=== PATIENT | male | born 1950 | race Caucasian/White ===

== ENCOUNTER 2023-04-24 08:39 | Outpatient (OUT) | payer MEDICARE, OTHER, SELFPAY ==
[2023-04-24 09:19] LABS: Basophils Percent Auto 0.4 % (0.2-2.0); Eosinophils Absolute Auto 0.1 10^3/uL (0.0-0.7); Eosinophils Percent Auto 1.8 % (0.9-7.0); Hematocrit 46.7 % (42.0-54.0); Hemoglobin 15.7 g/dL (14.0-18.0); Immature Granulocytes Abs Auto 0.02 10^3/uL (0.00-0.03); Immature Granulocytes Pct Auto 0.4 % (0.0-0.5); Lymphocytes Absolute Auto 1.6 10^3/uL (1.2-3.8); Lymphocytes Percent Auto 32.1 % (20.5-60.0); Mean Corpuscular HGB Conc 33.6 g/dL (29.9-35.2); Mean Corpuscular Hemoglobin 31.7 pg (25.9-34.0); Mean Corpuscular Volume 94.2 fL (80.0-94.0); Mean Platelet Volume 8.7 fL (9.5-13.5); Monocytes Absolute Auto 0.5 10^3/uL (0.3-0.8); Monocytes Percent Auto 10.1 % (1.7-12.0); Neutrophils Absolute Auto 2.7 10^3/uL (1.4-6.5); Neutrophils Percent Auto 55.2 % (43.0-75.0); Platelet Count 248 10^3/uL (150-450); Red Blood Count 4.96 10^6/uL (4.70-6.10); Red Cell Distribution Width 13.6 % (11.0-15.0)
[2023-04-24 09:42] LABS: Alanine Aminotransferase 31 U/L (16-63); Albumin Level 4.2 g/dL (3.4-5.0); Alkaline Phosphatase 187 U/L (46-116); Anion Gap 13.9; Aspartate Amino Transferase 20 U/L (15-37); BUN Creatinine Ratio 14.4; Bilirubin Total 0.4 mg/dL (0.2-1.0); Calcium 9.5 mg/dL (8.5-10.1); Carbon Dioxide 27.2 mmol/L (21.0-32.0); Chloride 102 mmol/L (98-107); Chol HDL Ratio 2.5; Cholesterol 155 mg/dL (<=200); Estimated GFR (African America >60 (>=60); Estimated GFR (Non-African Ame >60 (>=60); Glucose 105 mg/dL (74-106); HDL Cholesterol 61 mg/dL (40-60); Potassium 4.1 mmol/L (3.5-5.1); Sodium 139 mmol/L (136-145); Total Protein 8.2 g/dL (6.4-8.2); Triglycerides 126 mg/dL (<=150); VLDL CHOLESTEROL 25.2 mg/dL
[2023-04-24 09:43] LABS: Estimated Average Glucose 114 mg/dL; Glycohemoglobin A1C 5.6 % (4.5-6.2)
[2023-04-24 12:41] LABS: Microalbumin Urine Random 1.5 mg/dL (<=30.0)
[2023-04-24 13:21] LABS: Prostate Specific Antigen Dx 1.03 ng/mL (<=4.00)
== END 2023-04-24 08:40 | disposition home or self-care (01) ==
LOC: LAB 08:44
PROVIDERS: PCP Family Medicine; Visit Provider Family Medicine
DX: E11.9 Type 2 diabetes mellitus without complications (principal); G40.909 Epilepsy, unspecified, not intractable, without status epilepticus; N40.0 Benign prostatic hyperplasia without lower urinary tract symptoms
CPT/HCPCS: 36415; 80053; 80061; 82043; 83036; 84153; 85025

== ENCOUNTER 2024-05-06 08:19 | Outpatient (OUT) | payer MEDICARE, OTHER, SELFPAY ==
[2024-05-06 08:46] LABS: Basophils Percent Auto 0.8 % (0.2-2.0); Eosinophils Absolute Auto 0.1 10^3/uL (0.0-0.7); Hematocrit 42.3 % (42.0-54.0); Hemoglobin 14.2 g/dL (14.0-18.0); Immature Granulocytes Abs Auto 0.01 10^3/uL (0.00-0.03); Immature Granulocytes Pct Auto 0.3 % (0.0-0.5); Lymphocytes Absolute Auto 1.7 10^3/uL (1.2-3.8); Lymphocytes Percent Auto 41.9 % (20.5-60.0); Mean Corpuscular HGB Conc 33.6 g/dL (29.9-35.2); Mean Corpuscular Hemoglobin 32.2 pg (25.9-34.0); Mean Corpuscular Volume 95.9 fL (80.0-94.0); Mean Platelet Volume 8.4 fL (9.5-13.5); Monocytes Absolute Auto 0.4 10^3/uL (0.3-0.8); Monocytes Percent Auto 10.9 % (1.7-12.0); Neutrophils Absolute Auto 1.7 10^3/uL (1.4-6.5); Neutrophils Percent Auto 43.1 % (43.0-75.0); Platelet Count 240 10^3/uL (150-450); Red Blood Count 4.41 10^6/uL (4.70-6.10); Red Cell Distribution Width 13.4 % (11.0-15.0); White Blood Count 3.9 10^3/uL (4.0-11.0)
[2024-05-06 09:12] LABS: Microalbum Creatinine Ratio Ur 20.3 mg/g (0.0-29.9); Microalbumin Urine Random 1.9 mg/dL (<=30.0)
[2024-05-06 12:49] LABS: Anion Gap 14.5; Aspartate Amino Transferase 17 U/L (15-37); BUN Creatinine Ratio 15.7; Bilirubin Total 0.4 mg/dL (0.2-1.0); Calcium 9.3 mg/dL (8.5-10.1); Carbon Dioxide 24.8 mmol/L (21.0-32.0); Chloride 102 mmol/L (98-107); Estimated GFR (African America >60 (>=60); Estimated GFR (Non-African Ame >60 (>=60); Glucose 95 mg/dL (74-106); Potassium 3.3 mmol/L (3.5-5.1); Sodium 138 mmol/L (136-145)
[2024-05-06 12:50] LABS: Alanine Aminotransferase 24 U/L (16-63); Albumin Globulin Ratio 1.1; Albumin Level 3.9 g/dL (3.4-5.0); Alkaline Phosphatase 201 U/L (46-116); Chol HDL Ratio 2.4; Cholesterol 163 mg/dL (<=200); Globulin 3.4 g/dL; HDL Cholesterol 69 mg/dL (40-60); TSH W/ REFLEX FT4 4.166 uIU/mL (0.358-3.740); Total Protein 7.3 g/dL (6.4-8.2); Triglycerides 108 mg/dL (<=150); VLDL CHOLESTEROL 21.6 mg/dL
[2024-05-06 12:55] LABS: Prostate Specific Antigen Scrn 1.14 ng/mL (<=4.00)
[2024-05-06 13:14] LABS: Free T4 0.76 ng/dL (0.76-1.46)
[2024-05-07 06:10] LABS: HCV Antibody Non Reactive (Non Reactive)
== END 2024-05-06 08:20 | disposition home or self-care (01) ==
LOC: LAB 08:20
PROVIDERS: PCP Internal Medicine; Visit Provider Internal Medicine
DX: Z12.5 Encounter for screening for malignant neoplasm of prostate (principal); E11.69 Type 2 diabetes mellitus with other specified complication
CPT/HCPCS: 36415; 80053; 80061; 82043; 82570; 84439; 84443; 85025; 86803; G0103

== ENCOUNTER 2024-06-25 13:39 | Outpatient (OUT) | payer MEDICARE, OTHER, SELFPAY ==
[2024-06-25 14:39] LABS: Phenytoin Dilantin 9.8 ug/mL (10.0-20.0)
== END 2024-06-25 13:40 | disposition home or self-care (01) ==
LOC: LAB 13:40
PROVIDERS: PCP Internal Medicine; Visit Provider Nurse Practitioner Family
DX: R56.9 Unspecified convulsions (principal)
CPT/HCPCS: 36415; 80185

== ENCOUNTER 2025-04-26 09:53 | Outpatient (OUT) | payer MEDICARE, OTHER, SELFPAY ==
--- NOTE | 2025-04-26 10:01 | US_ITS ---
[place] [id number] Patient Name: SARAY STANLEY MRN: [id number] date: 1950 Sex: M Assigned Patient Location: [place] Current Patient Location: US Accession/Order Number: [id number] Exam Date: 04/26/2025 10:46 Report Date: 04/26/2025 10:47 At the request of: LUIS PRIDE Procedure: US aorta Aortic ultrasound Reason for exam: History of smoking. Comparison: none Technique: Grayscale, spectral and color Doppler images of the abdominal aorta were obtained. Findings: Visualized portions of the abdominal aorta appears normal in caliber without evidence of aneurysm. Visualized portions of the common iliac arteries also appear normal in caliber. US/US aorta Impression: No ultrasound evidence of abdominal aortic aneurysm. Impression dictated by: Saleem Quevedo Jr., D.O. 04/26/2025 10:47 AM Dictation Location: [place] [id number] Electronically authenticated by: [id number] Date: 04/26/2025 10:47
--- OUTSIDE RECORDS SUMMARY | 2025-04-26 10:17 | XMS_ITS | CCD ---
Author Organization [facility] Care Team Providers Care Tassel Clipper Name Role Phone HOUSE, DR WALKER Primary Care Unavailable ABEBA LU Admitting Unavailable ABEBA LU Attending Unavailable TENNILLE SANDHU Consulting Unavailable HOUSE, DR WALKER Admitting Unavailable HOUSE, DR WALKER Attending Unavailable HOUSE, DR WALKER Primary Care Unavailable HOUSE, DR WALKER Consulting Unavailable GÉNESIS, DR DOUGLAS Admitting Unavailable GÉNESIS, DR DOUGLAS Attending Unavailable BOBY, DR WALKER Primary Care Unavailable GÉNESIS, DR DOUGLAS Consulting Unavailable DRAGAN Jack Primary Care Provider DO Stella Capps Attending Provider [phone] Stella Capps Attending Unavailable Christopher Jack Primary Care Unavailable Stella Capps Admjonatan Unavailable Christopher Jack Primary Care Unavailable Stella Capps Admitting Unavailable Stella Capps Attending Unavailable Christopher Jack Primary Care Unavailable Stella Capps Admitting Unavailable Stella Capps Attending Unavailable Christopher Jack MD Primary Care Provider Stella Capps DO Unavailable CHRISTOPHER JACK Attending Unavailable CHRISTOPHER JACK Attending Unavailable JACY MUNOZ Attending Unavailable CHRISTOPHER JACK Attending Unavailable JACY MUNOZ Attending Unavailable Medications Current Medications Medication Drug Class(es) Dates Sig (Normalized) Sig (Original) atorvastatin 10 mg oral tablet (13 sources) HMG-CoA Reductase Inhibitor Start: 12-03-2024 take 1 tablet by mouth once daily atorvastatin (Lipitor) 10 MG tablet Indications: Pure hypercholesterolemia Take 1 tablet (10 mg) by mouth Daily 100 tablet 3 12/03/2024 Active Start: 12-18-2023 take 1 tablet by lester th once daily atorvastatin (Lipitor) 10 MG tablet Indications: Pure hypercholesterolemia (CMS/HCC) take 1 tablet by mouth once daily 100 tablet 3 12/18/2023 Active doxepin hydrochloride 10 mg oral capsule (13 sources) Tricyclic Antidepressant Start: 12-30-2024 take 1 capsule by mouth at bedtime doxepin (SINEquan) 10 MG capsule Indications: Obstructive sleep apnea TAKE 1 TO 2 CAPSULES BY MOUTH AT BEDTIME 60 capsule 1 12/30/2024 Active Start: 10-05-2024 take 1 capsule by mo uth at bedtime doxepin (SINEquan) 10 MG capsule Indications: Obstructive sleep apnea TAKE 1 TO 2 CAPSULE BY MOUTH AT BEDTIME 60 capsule 1 10/05/2024 Active Start: 03-26-2023 take 1 capsule by mo uth at bedtime doxepin (SINEquan) 10 MG capsule Take 10 mg by mouth at bedtime 03/26/2023 Active metFORMIN hydrochloride 500 mg oral tablet (13 sources) Biguanide Start: 10-05-2024 End: 10-05-2025 take 1 tablet by mouth in the morning metFORMIN (Glucophage) 500 MG tablet Indications: Type 2 diabetes mellitus without complication, without long-term current use of insulin (HCC) Take 1 tablet (500 mg) by mouth in the morning and 1 tablet (500 mg) in the evening. Take with meals. 180 tablet 3 10/05/2024 10/05/2025 Active Start: 09-23-2023 End: 09-22-2024 take 1 tablet by mouth in the morning metFORMIN (Glucophage) 500 MG tablet Indications: Type 2 diabetes mellitus without complication, without long-term current use of insulin (CMS/HCC) Take 1 tablet (500 mg) by mouth in the morning and 1 tablet (500 mg) in the evening. Take with meals. 180 tablet 3 09/23/2023 09/22/2024 Active phenytoin 50 mg chewable tablet (13 sources) Anti-epileptic Agent Start: 12-30-2024 take 3 tablets by mouth twice daily Phenytoin Infatabs 50 MG chewable tablet Indications: Seizures (HCC) CHEW AND SWALLOW 3 TABLETS BY MOUTH TWICE A DAY 540 tablet 12/30/2024 Active Start: 10-13-2024 take 3 tablets by mo uth twice daily Phenytoin Infatabs 50 MG chewable tablet Indications: Seizures (CMS/HCC) CHEW AND SWALLOW 3 TABLETS BY MOUTH TWICE A DAY 540 tablet 10/13/2024 Active Start: 03-23-2024 take 3 tablets by mo uth twice daily phenytoin (Dilantin) 50 MG chewable tablet Indications: Seizures (CMS/HCC) take 3 tablets by mouth twice a day 540 tablet 1 03/23/2024 Active Problems Active Problems Problem Classification Problem Date Documented Da te Episodic/Chronic Administrative/social admission (2 sources) Patient encounter status; Translations: [Other specified counseling] 04-19-2025 Episodic Allergic reactions (13 sources) Atopic dermatitis; Translations: [Other atopic dermatitis] Onset: 09-20-2023 09-20-2023 Chronic Diabetes mellitus with complications (17 sources) Type 2 diabetes mellitus; Translations: [Type 2 diabetes mellitus with other specified complication] Onset: 09-23-2023 05-04-2024 Chronic Diabetes mellitus without complication (4 sources) Type 2 diabetes mellitus without complications; Translations: [TYPE 2 DM WITHOUT COMPLICATIONS] Onset: 10-02-2021 Chronic Epilepsy; convulsions (14 sources) Epilepsy, unspecified, not intractable, without status epilepticus; Translations: [Epilepsy] Onset: 01-06-2018 05-17-2024 Chronic Epilepsy; convulsions (20 sources) Unspecified convulsions; Translations: [Seizure] Onset: 05-24-2022 Episodic Hyperplasia of prostate (1 source) Benign prostatic hyperplasia without lower urinary tract symptoms; Translations: [BENIGN PROSTATIC HYPRPLASIA WO LUTS] Onset: 10-08-2021 Chronic Other aftercare (1 source) Other exterminator termite (current) drug therapy; Translations: [[employer] CURRENT DRUG THERAPY] Onset: 09-03-2022 Episodic Other aftercare (1 source) 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; Translations: [M[facility] USE ORAL HYPOGLYCEMIC DX] Onset: 09-03-2022 Episodic Other hereditary and degenerative nervous system conditions (15 sources) Impaired cognition; Translations: [Mild cognitive impairment, so stated] Onset: 10-01-2018 05-17-2024 Chronic Other screening for suspected conditions (not mental disorders or infectious disease) (5 sources) Encounter for screening for malignant neoplasm of prostate; Translations: [Patient encounter status] Onset: 10-08-2021 04-19-2025 Episodic Residual codes; unclassified (20 sources) Obstructive sleep apnea syndrome; Translations: [Obstructive sleep apnea (adult) (pediatric)] Onset: 01-06-2018 05-25-2024 Chronic Screening and history of mental health and substance abuse codes (2 sources) Tobacco smoking behavior - finding; Translations: [Personal history of nicotine dependence] 04-19-2025 Episodic Unclassified (1 source) Unspecified convulsions; Translations: [Unspecified convulsions] Onset: 07-04-2023 Viral infection (4 sources) COVID-19; Translations: [COVID-19] Onset: 08-29-2022 Past or Other Problems Problem Classification Problem Date Documented Da te Episodic/Chronic Disorders of lipid metabolism (13 sources) Pure hypercholesterolemi a; Translations: [Pure hypercholesterolemi a, unspecified] Onset: 09-23-2023 Resolved: 10-14-2024 09-23-2023 Chronic Other liver diseases (19 sources) Alkaline phosphatase raised; Translations: [Abnormal levels of other serum enzymes] Onset: 10-01-2018 05-25-2024 Episodic Residual codes; unclassified (17 sources) Insomnia; Translations: [Insomnia, unspecified] Onset: 10-25-2017 05-25-2024 Episodic Residual codes; unclassified (17 sources) Amnesia; Translations: [Other amnesia] Onset: 10-25-2017 05-25-2024 Episodic Results Test Name Value Interpretation Reference Range Facility Laboratory - Hematology and Cell countson 04-19-2025 HbA1c (Bld) [Mass fraction] 5.7 % [facility] No Panel Informationon 04-19 [facility] HbA1c (Bld) [Mass fraction]o n 10-01-2024 [facility] Laboratory - Chemistry and C hemistry - challengeon 10-01-2024 Prostate specific Ag [Mass/Vol] 0.84 ng/mL [facility] ALT [Catalytic activity/Vol] 24 U/L [facility] AST [Catalytic activity/Vol] 23 U/L [facility] Creatinine (U) [Mass/Vol] 0.8 mg/dL [facility] GFR/1.73 sq M.predicted among non-blacks MDRD (S/P/Bld) [Vol rate/Area] 93 mL/min/{1.73_m2} [facility] Glucose [Mass/Vol] 121 mg/dL [facility] Potassium [Moles/Vol] 3.6 mmol/L [facility] Sodium [Moles/Vol] 141 mmol/L [facility] Urea nitrogen [Mass/Vol] 16 mg/dL [facility] Laboratory - Hematology and Cell countson 10-01-2024 HbA1c (Bld) [Mass fraction] 5.6 % [facility] Lipid 1996 panelon 4 Cholesterol [Mass/Vol] 158 mg/dL [facility] HDL-C 60 [facility] LDL-C 75 [facility] Triglyceride [Mass/Vol] 115 mg/dL [facility] Microalbumin/Creatinine rati o panel (U)on 10-01-2024 Albumin DL <= 20 mg/L (U) [Mass/Vol] 2 mg/dL [facility] Albumin/Creatinine DL <= 1.0 mg/L (U) [Ratio] 14 [facility] Creatinine (U) [Mass/Vol] 139 mg/dL [facility] No Panel Informationon 10-01 [facility] Prostate specific Ag [Mass/V ol]on 10-01-2024 [facility] ALL PHENYTOIN (DILANTIN)on 0 06-25-2024 Interpretation and review of laboratory results Abnormal [facility] PHENYTOIN DILANTIN 9.8 ug/mL Low 10.0 - 20 .0 ug/mL [facility] MISC LABon 07-25-2023 MISC LAB Normal [facility] Comment on above: Order Comment: [facility] Test Name: PHENYTOIN, FREE AND TOTAL LC#[id number], CPT#20042, 50240 Result Comment: See report. Scanned copy available in EMR. PERFORMED BY: [place] [address] PATHOLOGIST MAINTENANCE MAN RICCO BRANCH M.D. Performed By: #### [facility] #### [address] Phenytoin (Dilantin)on 07-04 Phenytoin [Mass/Vol] 7.7 ug/mL Low 10.0-20.0 [facility] Comment on above: Order Comment: LAST TIME HE HAD HIS MEDICATION WAS ON 06/25/2023 Result Comment: Last dose: - PERFORMED BY: [place] [address] PATHOLOGIST MAINTENANCE MAN RICCO BRANCH M.D. Performed By: #### P NICCI #### [facility] [address] Phenytoin [Mass/volume] in S vijay or PlasmaOrdered By: Stella Capps on 07-04-2023 Phenytoin [Mass/Vol] 7.7 ug/mL 10.0-20.0 [facility] Comment on above: Last dose: - Alanine aminotransferase [En zymatic activity/volume] in Serum or PlasmaOrdered By: Stella Capps on 06-18-2023 ALT [Catalytic activity/Vol] 20 U/L 7-52 [facility] Albumin [Mass/volume] in Ser um or Plasma by Bromocresol green (BCG) dye binding methoOrdered By: Stella Capps on 06-18-2023 Albumin BCG dye [Mass/Vol] 4.3 g/dL 3.5-5.7 [facility] Alkaline phosphatase [Enzyma tic activity/volume] in Serum or PlasmaOrdered By: Stella Capps on 06-18-2023 ALP [Catalytic activity/Vol] 153 U/L 34-104 [facility] Aspartate aminotransferase [ Enzymatic activity/volume] in Serum or PlasmaOrdered By: Stella Capps on 06-18-2023 AST [Catalytic activity/Vol] 19 U/L 13-39 [facility] Bilirubin.direct [Mass/volum e] in Serum or PlasmaOrdered By: Stella Capps on 06-18-2023 Bilirubin.direct [Mass/Vol] 0.10 mg/dL 0.03-0.18 [facility] Bilirubin.total [Mass/volume ] in Serum or PlasmaOrdered By: Stella Capps on 06-18-2023 Bilirubin [Mass/Vol] 0.4 mg/dL 0.3-1.0 [facility] Globulin Calc (S) [Mass/Vol] Ordered By: Stella Capps on 06-18-2023 Globulin (S) [Mass/Vol] 2.6 g/dL [facility] Hepatic Panelon 06-18-2023 Albumin [Mass/Vol] 4.3 g/dL Normal 3.5-5.7 [facility] Comment on above: Performed By: #### P HENDanyelle, HEPATIC #### [address] Albumin/Globulin [Mass ratio] 1.7 {ratio} Normal [facility] Comment on above: Performed By: #### P HENY, HEPATIC #### [address] ALP [Catalytic activity/Vol] 153 U/L High 34-104 [facility] Comment on above: Result Comment: PERF ORMED BY: [place] [address] PATHOLOGIST MAINTENANCE MAN RICCO BRANCH M.D. Performed By: #### P HENDanyelle, HEPATIC #### [address] ALT [Catalytic activity/Vol] 20 U/L Normal 7-52 [facility] Comment on above: Performed By: #### P HENDanyelle, HEPATIC #### [address] AST [Catalytic activity/Vol] 19 U/L Normal 13-39 [facility] Comment on above: Performed By: #### P HENDanyelle, HEPATIC #### [address] Bilirubin [Mass/Vol] 0.4 mg/dL Normal 0.3-1.0 [facility] Comment on above: Performed By: #### P HENDanyelle, HEPATIC #### [facility] [address] [place] [address] Bilirubin,Indirect 0.3 mg/dL Normal [facility] Comment on above: Performed By: #### P HENY, HEPATIC #### [address] Bilirubin.indirect [Mass/Vol] 0.10 mg/dL Normal 0.03-0.18 [facility] Comment on above: Performed By: #### P HENY, HEPATIC #### [address] Globulin (S) [Mass/Vol] 2.6 g/dL Normal [facility] Comment on above: Performed By: #### P HENY, HEPATIC #### [facility] [address] Protein [Mass/Vol] 6.9 g/dL Normal 6.4-8.9 [facility] Comment on above: Performed By: #### P NICCI, HEPATIC #### [facility] [address] Phenytoin (Dilantin)on 06-18 Phenytoin [Mass/Vol] 3.6 ug/mL Low 10.0-20.0 [facility] Comment on above: Order Comment: Date of last dose?: [id number] Time of last dose?: 899 Result Comment: Last dose: - PERFORMED BY: [place] [address] PATHOLOGIST MAINTENANCE MAN RICCO BRANCH M.D. Performed By: #### P NICCI, HEPATIC #### [facility] [address] [place] [address] Phenytoin [Mass/volume] in S vijay or PlasmaOrdered By: Stella Capps on 06-18-2023 Phenytoin [Mass/Vol] 3.6 ug/mL 10.0-20.0 [facility] Comment on above: Last dose: - Protein [Mass/volume] in Ser um or PlasmaOrdered By: Stella Capps on 06-18-2023 Protein [Mass/Vol] 6.9 g/dL 6.4-8.9 [facility] Serum or plasma albumin/glob ulin mass ratioOrdered By: Stella Capps on 06-18-2023 Albumin/Globulin [Mass ratio] 1.7 {ratio} [facility] Serum or plasma non-glucuron idated bilirubin measurement (mass/volume)Ordered By: Stella Capps on 06-18-2023 Bilirubin.indirect [Mass/Vol] 0.3 mg/dL [facility] Covid-19 PCR (CVDTBH)on 08-08 SARS-CoV-2 (COVID-19) RNA VARSHA+probe Ql (Unsp spec) Detected Critically abnormal NOT DETECTED [facility] Comment on above: Result Comment: This test is not yet approved or cleared by the [place] FDA. When there are no FDA-approved or cleared tests available, and other criteria are met, FDA can make tests available under an emergency access mechanism called an Emergency Use Authorization (EUA). The EUA for this test is supported by the [place] of Health and Human Service's declaration that circumstances exist to justify the emergency use of in vitro diagnostics for the detection and/or diagnosis of the virus that causes COVID-19. This EUA will remain in effect for the duration of the COVID-19 declaration justifying emergency of IVDs, unless it is terminated or revoked by the FDA (after which the test may no longer be used). Performed By: #### C VDTB #### [facility] [address] [place] [address] Dr. Gloria Costa DILANTINon 05-24-2022 Phenytoin [Mass/Vol] 3.7 ug/mL Critically low 10.0-20.0 [facility] Comment on above: Performed By: #### Delmer DOYLE PHY #### [facility] [address] [place] [address] Dr. Gloria Costa LIVER PROFILEon 05-24-2022 Albumin [Mass/Vol] 4.2 g/dL Normal 3.4-5.0 [facility] Comment on above: Performed By: #### Delmer DOYLE PHY #### [facility] [address] [place] [address] Dr. Gloria Costa Albumin/Globulin [Mass ratio] 1.1 {ratio} Normal [facility] Comment on above: Performed By: #### Delmer DOYLE PHY #### [facility] [address] [place] [address] Dr. Gloria Costa ALP [Catalytic activity/Vol] 222 U/L Critically high 46-116 [facility] Comment on above: Performed By: #### Delmer DOYLE PHY #### [facility] [address] [place] [address] Dr. Gloria Costa ALT [Catalytic activity/Vol] 27 U/L Normal 16-63 [facility] Comment on above: Performed By: #### Delmer DOYLE PHY #### [facility] [address] [place] [address] Dr. Golria Costa AST [Catalytic activity/Vol] 18 U/L Normal 15-37 [facility] Comment on above: Performed By: #### L VIVEK, PHY #### [facility] [address] [place] [address] Dr. Gloria Costa BILI, CONJUGATED 0.1 mg/dL Normal 0.0-0.2 [facility] Comment on above: Performed By: #### L VIVEK, PHY #### [facility] [address] [place] [address] Dr. Gloria Costa Bilirubin [Mass/Vol] 0.3 mg/dL Normal 0.2-1.0 [facility] Comment on above: Performed By: #### L VIVEK, PHY #### [facility] [address] [place] [address] Dr. Gloria Costa Globulin (S) [Mass/Vol] 3.7 g/dL Normal [facility] Comment on above: Performed By: #### L VIVEK, PHY #### [facility] [address] [place] [address] Dr. Gloria Costa Protein [Mass/Vol] 7.9 g/dL Normal 6.4-8.2 [facility] Comment on above: Performed By: #### L VIVEK, PHY #### [facility] [address] [place] [address] Dr. Gloria Costa PSA SCREENING LABCORPon 09-07 Prostate specific Ag [Mass/Vol] 0.8 ng/mL Normal 0.0-4.0 [facility] Comment on above: Result Comment: Roch theo ECLIA methodology. . According to the [place] [employer], Serum PSA should decrease and remain at undetectable levels after radical prostatectomy. The AUA defines biochemical recurrence as an initial PSA value 0.2 ng/mL or greater followed by a subsequent confirmatory PSA value 0.2 ng/mL or greater. Values obtained with different assay methods or kits cannot be used interchangeably. Results cannot be interpreted as absolute evidence of the presence or absence of malignant disease. Performed By: #### P SASCLC #### [facility] [address] [address] [address] Gloria Costa CBC AUTO DIFFon 10-02-2021 BASO # 0.0 103/ul Normal 0.0-0.1 [facility] Comment on above: Performed By: #### C BC #### [facility] [address] [place] [address] Dr. Gloria Costa Basophils/100 WBC (Bld) 0.7 % Normal 0.2-2.0 [facility] Comment on above: Performed By: #### C BC #### [facility] [address] [place] [address] Dr. Gloria Costa EO # 0.1 103/ul Normal 0.0-0.7 [facility] Comment on above: Performed By: #### C BC #### [facility] [address] [place] [address] Dr. Gloria Costa Eosinophils/100 WBC (Bld) 2.0 % Normal 0.9-7.0 [facility] Comment on above: Performed By: #### C BC #### [facility] [address] [place] [address] Dr. Gloria Costa Erythrocyte distribution width (RBC) [Ratio] 14.0 % Normal 11.0-15.0 [facility] Comment on above: Performed By: #### C BC #### [facility] [address] [place] [address] Dr. Gloria Costa Hematocrit (Bld) [Volume fraction] 48.3 % Normal 42.0-54.0 [facility] Comment on above: Performed By: #### C BC #### [facility] [address] [place] [address] Dr. Gloria Costa Hemoglobin (Bld) [Mass/Vol] 15.1 g/dL Normal 14.0-18.0 [facility] Comment on above: Performed By: #### C BC #### [facility] [address] [place] [address] Dr. Gloria Costa IG # 0.01 10e3/ul Normal 0.00-0.03 [facility] Comment on above: Performed By: #### C BC #### [facility] [address] [place] [address] Dr. Gloria Costa IG % 0.2 % Normal 0.0-0.5 [facility] Comment on above: Performed By: #### C BC #### [facility] [address] [place] [address] Dr. Gloria Costa LYMPH # 1.9 103/ul Normal 1.2-3.8 [facility] Comment on above: Performed By: #### C BC #### [facility] [address] [place] [address] Dr. Gloria Costa Lymphocytes/100 WBC (Bld) 31.8 % Normal 20.5-60.0 [facility] Comment on above: Performed By: #### C BC #### [facility] [address] [place] [address] Dr. Gloria Costa MANUAL DIFF REQ NO Normal [facility] Comment on above: Performed By: #### C BC #### [facility] [address] [place] [address] Dr. Gloria Costa MCH (RBC) [Entitic mass] 30.7 pg Normal 25.9-34.0 [facility] Comment on above: Performed By: #### C BC #### [facility] [address] [place] [address] Dr. Gloria Costa MCHC (RBC) [Mass/Vol] 31.3 g/dL Normal 29.9-35.2 [facility] Comment on above: Performed By: #### C BC #### [facility] [address] [place] [address] Dr. Gloria Costa MCV (RBC) [Entitic vol] 98.2 fL Critically high 80.0-94.0 [facility] Comment on above: Performed By: #### C BC #### [facility] [address] [place] [address] Dr. Gloria Costa MONO # 0.6 103/ul Normal 0.3-0.8 [facility] Comment on above: Performed By: #### C BC #### [facility] [address] [place] [address] Dr. Gloria Costa Monocytes/100 WBC (Bld) 9.2 % Normal 1.7-12.0 [facility] Comment on above: Performed By: #### C BC #### [facility] [address] [place] [address] Dr. Gloria Costa NEUT # 3.4 103/ul Normal 1.4-6.5 [facility] Comment on above: Performed By: #### C BC #### [facility] [address] [place] [address] Dr. Gloria Costa Neutrophils/100 WBC (Bld) 56.1 % Normal 43.0-75.0 [facility] Comment on above: Performed By: #### C BC #### [facility] [address] [place] [address] Dr. Gloria Costa Platelet mean volume (Bld) [Entitic vol] 9.0 fL Critically low 9.5-13.5 [facility] Comment on above: Performed By: #### C BC #### [facility] [address] [place] [address] Dr. Gloria Costa PLT 272 103/ul Normal 150-450 [facility] Comment on above: Performed By: #### C BC #### [facility] [address] [place] [address] Dr. Gloria Costa RBC 4.92 106/ul Normal 4.70-6.10 [facility] Comment on above: Performed By: #### C BC #### [facility] [address] [place] [address] Dr. Gloria Costa WBC 6.0 103/ul Normal 4.0-11.0 [facility] Comment on above: Performed By: #### C BC #### [facility] [address] [place] [address] Dr. Gloria CLAYANTIErica 10-02-2021 Phenytoin [Mass/Vol] 3.1 ug/mL Critically low 10.0-20.0 [facility] Comment on above: Performed By: #### P HY, LIPID, CMP #### [facility] [address] [address] [address] Gloria Costa GLYCOHEMOGLOBIN A1Con 2020 ADA RECOMMENDATION ADA THERAPEUTIC TARGET 6.0 - 7.0 ACTION SUGGESTED > 7.0 Normal [facility] Comment on above: Performed By: #### A 1C #### [facility] [address] [address] [address] Gloria Costa Glucose [Mass/Vol] 123 mg/dL Normal [facility] Comment on above: Performed By: #### A 1C #### [facility] [address] [address] [address] Gloria Costa HbA1c (Bld) [Mass fraction] 5.9 % Normal <=6.0 [facility] Comment on above: Performed By: #### A 1C #### [facility] [address] [place] [address] Dr. Gloria Costa LIPID PROFILEon 10-02-2021 CHOL-HDL RATIO NORM SEE BELOW Normal [facility] Comment on above: Result Comment: 3.3 - 4.4 LOW RISK 4.4 - 7.1 AVERAGE RISK 7.1 - 11.0 MODERATE RISK >11.0 HIGH RISK Performed By: #### P HY, LIPID, CMP #### [facility] [address] [place] [address] Dr. Gloria Costa Cholesterol [Mass/Vol] 187 mg/dL Normal <=200 [facility] Comment on above: Performed By: #### P HY, LIPID, CMP #### [facility] [address] [place] [address] Dr. Gloria Costa Cholesterol in HDL [Mass/Vol] 60 mg/dL Normal [facility] Comment on above: Performed By: #### P HY, LIPID, CMP #### [facility] [address] [address] [address] Gloria Costa Cholesterol in LDL [Mass/Vol] 97.4 mg/dL Normal [facility] Comment on above: Performed By: #### P HY, LIPID, CMP #### [facility] [address] [address] [address] Gloria Costa Cholesterol.total/Cho lesterol in HDL [Mass ratio] 3.1 {ratio} Normal [facility] Comment on above: Performed By: #### P HY, LIPID, CMP #### [facility] [address] [address] [address] Gloria Costa HDL NORMAL > or = 60 mg/dl - LOW CARDIOVASCULAR RISK <40 mg/dl - HIGH CARDIOVASCULAR RISK Normal [facility] Comment on above: Performed By: #### P HY, LIPID, CMP #### [facility] [address] [address] [address] Gloria Costa LDL CALC NORMAL SEE BELOW Normal [facility] Comment on above: Result Comment: <100 mg/dl OPTIMAL 100 - 129 mg/dl NEAR OR ABOVE OPTIMAL 130 - 159 mg/dl BORDERLINE HIGH 160 - 189 mg/dl HIGH >190 mg/dl VERY HIGH Performed By: #### P HY, LIPID, CMP #### [facility] [address] [address] [address] Gloria Costa Triglyceride [Mass/Vol] 148 mg/dL Normal <=150 [facility] Comment on above: Performed By: #### P HY, LIPID, CMP #### [facility] [address] [address] [address] Gloria Costa VLDL CALC 29.6 mg/dL Normal [facility] Comment on above: Performed By: #### P HY, LIPID, CMP #### [facility] [address] [address] [address] Gloria Costa MICROALBUMIN, RAND URon 09-07 mALB 5.1 mg/L Normal <=30.0 [facility] Comment on above: Performed By: #### M ALBR #### [facility] [address] [address] [address] Gloria Costa PROF 14(COMP METB)on 021 Albumin [Mass/Vol] 4.1 g/dL Normal 3.5-5.0 [facility] Comment on above: Performed By: #### P HY, LIPID, CMP #### [facility] [address] [address] [address] Gloria Costa Albumin/Globulin [Mass ratio] 1.2 {ratio} Normal [facility] Comment on above: Performed By: #### P HY, LIPID, CMP #### [facility] [address] [address] [address] Gloria Costa ALP [Catalytic activity/Vol] 185 U/L Critically high 38-126 [facility] Comment on above: Performed By: #### P HY, LIPID, CMP #### [facility] [address] [address] [address] Gloria Costa ALT [Catalytic activity/Vol] 38 U/L Normal 21-72 [facility] Comment on above: Performed By: #### P HY, LIPID, CMP #### [facility] [address] [place] [address] Dr. Gloria Costa Anion gap [Moles/Vol] 13.0 mmol/L Normal [facility] Comment on above: Performed By: #### P HY, LIPID, CMP #### [facility] [address] [place] [address] Dr. Gloria Costa AST [Catalytic activity/Vol] 22 U/L Normal 17-59 [facility] Comment on above: Performed By: #### P HY, LIPID, CMP #### [facility] [address] [place] [address] Dr. Gloria Costa Bilirubin [Mass/Vol] 0.3 mg/dL Normal 0.2-1.3 [facility] Comment on above: Performed By: #### P HY, LIPID, CMP #### [facility] [address] [place] [address] Dr. Gloria Costa Calcium [Mass/Vol] 9.1 mg/dL Normal 8.4-10.2 [facility] Comment on above: Performed By: #### P HY, LIPID, CMP #### [facility] [address] [place] [address] Dr. Gloria Costa Chloride [Moles/Vol] 102 mmol/L Normal 98-107 [facility] Comment on above: Performed By: #### P HY, LIPID, CMP #### [facility] [address] [place] [address] Dr. Gloria Costa CO2 [Moles/Vol] 26.5 mmol/L Normal 22.0-30.0 [facility] Comment on above: Performed By: #### P HY, LIPID, CMP #### [facility] [address] [address] [address] Gloria Costa Creatinine [Mass/Vol] 0.90 mg/dL Normal 0.66-1.25 [facility] Comment on above: Performed By: #### P HY, LIPID, CMP #### [facility] [address] [address] [address] Gloria Costa EGFR-AF IRISH >60 Normal >=60 [facility] Comment on above: Performed By: #### P HY, LIPID, CMP #### [facility] [address] [address] [address] Gloria Costa EGFR-NON AF IRISH >60 Normal >=60 [facility] Comment on above: Performed By: #### P HY, LIPID, CMP #### [facility] [address] [address] [address] Gloria Costa Globulin (S) [Mass/Vol] 3.5 g/dL Normal [facility] Comment on above: Performed By: #### P HY, LIPID, CMP #### [facility] [address] [address] [address] Gloria Costa Glucose [Mass/Vol] 96 mg/dL Normal 74-106 [facility] Comment on above: Performed By: #### P HY, LIPID, CMP #### [facility] [address] [address] [address] Gloria Costa Potassium [Moles/Vol] 3.5 mmol/L Normal 3.4-5.0 [facility] Comment on above: Performed By: #### P HY, LIPID, CMP #### [facility] [address] [address] [address] Gloria Costa Protein [Mass/Vol] 7.6 g/dL Normal 6.1-8.2 [facility] Comment on above: Performed By: #### P HY, LIPID, CMP #### [facility] [address] [address] [address] Gloria Costa Sodium [Moles/Vol] 138 mmol/L Normal 137-145 [facility] Comment on above: Performed By: #### P HY, LIPID, CMP #### [facility] [address] [address] [address] Gloria Costa Urea nitrogen [Mass/Vol] 16.0 mg/dL Normal 9.0-20.0 [facility] Comment on above: Performed By: #### P HY, LIPID, CMP #### [facility] [address] [address] [address] Gloria Costa Urea nitrogen/Creatinine [Mass ratio] 17.8 mg/mg Normal [facility] Comment on above: Performed By: #### P HY, LIPID, CMP #### [facility] [address] [address] [address] Gloria Costa Vital Signs Date Time Vital Sign Value Performing Clinician Faci lity 04-19-2025 14:04-0400 Body height 170.2 cm Christopher Jack MD Work Phone: [facility] 04-19-2025 14:04-0400 Body mass index (BMI) [Ratio] 20.2 kg/m2 Christopher Jack MD Work Phone: [facility] 04-19-2025 14:04-0400 Body weight 58.51 kg Christopher Jack MD Work Phone: [facility] 04-19-2025 14:04-0400 Diastolic blood pressure 66 mm[Hg] Christopher Jack MD Work Phone: [facility] 04-19-2025 14:04-0400 Heart rate 64 /min Christopher Jack MD Work Phone: [facility] 04-19-2025 14:04-0400 SaO2% (BldA) [Mass fraction] 95 % Christopher Jack MD Work Phone: [facility] 04-19-2025 14:04-0400 Systolic blood pressure 124 mm[Hg] Christopher Jack MD Work Phone: [facility] 11-17-2024 14:25-0500 Body height 170.2 cm Jacy Sarkarr [employer] Work Phone: [facility] 11-17-2024 14:25-0500 Body mass index (BMI) [Ratio] 20.36 kg/m2 Jacy Rinconmor [employer] Work Phone: [facility] 11-17-2024 14:25-0500 Body weight 58.97 kg Jacy Rinconmor [employer] Work Phone: [facility] 11-17-2024 14:25-0500 Diastolic blood pressure 65 mm[Hg] Jacy Rinconmor [employer] Work Phone: [facility] 11-17-2024 14:25-0500 Heart rate 72 /min Jacy Rinconmor [employer] Work Phone: [facility] 11-17-2024 14:25-0500 Systolic blood pressure 108 mm[Hg] Jacy Rinconmor [employer] Work Phone: [facility] 10-14-2024 11:44-0500 Body height 170.2 cm Christopher Jack MD Work Phone: [facility] 10-14-2024 11:44-0500 Body mass index (BMI) [Ratio] 20.99 kg/m2 Christopher Jack MD Work Phone: [facility] 10-14-2024 11:44-0500 Body weight 60.78 kg Christopher Jack MD Work Phone: [facility] 10-14-2024 11:44-0500 Diastolic blood pressure 68 mm[Hg] Christopher Jack MD Work Phone: [facility] 10-14-2024 11:44-0500 Heart rate 64 /min Christopher Jack MD Work Phone: [facility] 10-14-2024 11:44-0500 SaO2% (BldA) [Mass fraction] 96 % Christopher Jack MD Work Phone: [facility] 10-14-2024 11:44-0500 Systolic blood pressure 118 mm[Hg] Christopher Jack MD Work Phone: [facility] 05-25-2024 14:17-0400 Body height 170.2 cm Jacy Munoz [employer] Work Phone: [facility] 05-25-2024 14:17-0400 Body mass index (BMI) [Ratio] 21.33 kg/m2 Jacy Sarkarr [employer] Work Phone: [facility] 05-25-2024 14:17-0400 Body weight 61.78 kg Jacy Sarkarr [employer] Work Phone: [facility] 05-25-2024 14:17-0400 Diastolic blood pressure 81 mm[Hg] Jacy Sarkarr [employer] Work Phone: [facility] 05-25-2024 14:17-0400 Heart rate 80 /min Jacy Sarkarr [employer] Work Phone: [facility] 05-25-2024 14:17-0400 SaO2% (BldA) [Mass fraction] 95 % Jacy Sarkarr [employer] Work Phone: [facility] 05-25-2024 14:17-0400 Systolic blood pressure 123 mm[Hg] Jacy Sarkarr [employer] Work Phone: [facility] Healthcare Encounters Encounter Date Encounter Type Care Provider Facility Start: 04-19-2025 End: 04-19-2025 ambulatory CHRISTOPHER JACK Not Available Start: 04-19-2025 End: 04-19-2025 Assay of hemosiderin, quant Christopher Jack MD Work Phone: [facility] Healthcare Work Phone: Start: 04-19-2025 End: 04-19-2025 Bamboo flowsheet Christopher Jack MD Work Phone: [facility] Start: 04-19-2025 End: 04-19-2025 Bamboo flowsheet Christopher Jack MD Work Phone: [facility] Start: 04-19-2025 End: 04-19-2025 Patient encounter procedure Christopher Jack MD Work Phone: [facility] Comment on above: Routine general medi dona examination at health care facility (Primary Dx); ACP (advance care planning); Encounter for screening for malignant neoplasm of colon; History of smoking 25-50 pack years; Screening for AAA (abdominal aortic aneurysm); Type 2 diabetes mellitus with other specified complication, without long-term current use of insulin (HCC); Seizures (HCC); Mild cognitive impairment; Obstructive sleep apnea Start: 11-17-2024 End: 11-17-2024 Office outpatient visit 25 minutes Jacy Munoz NP Work Phone: [facility] Comment on above: Seizures (CMS/HCC) ( Primary Dx); Obstructive sleep apnea; Insomnia, unspecified type; Memory loss; Alkaline phosphatase raised Start: 11-17-2024 End: 11-17-2024 ambulatory JACY MUNOZ Not Available Start: 11-17-2024 End: 11-17-2024 Bamboo flowsheet Jacy Munoz [employer] Work Phone: [facility] Start: 11-17-2024 End: 11-17-2024 Bamboo flowsheet Jacy Munoz [employer] Work Phone: [facility] Start: 10-14-2024 End: 10-14-2024 Bamboo flowsheet Christopher Jack MD Work Phone: [facility] Start: 10-14-2024 End: 10-14-2024 Bamboo flowsheet Christopher Jack MD Work Phone: [facility] Start: 10-14-2024 End: 10-14-2024 ambulatory CHRISTOPHER JACK Not Available Start: 10-14-2024 End: 10-14-2024 Office outpatient visit 15 minutes Christopher Jack MD Work Phone: [facility] Comment on above: Type 2 diabetes chandrika itus with other specified complication, without long-term current use of insulin (CMS/HCC) (Primary Dx); Obstructive sleep apnea; Seizures (CMS/HCC); Alkaline phosphatase raised Start: 06-30-2024 End: 07-02-2024 Telephone encounter Christopher Jack MD Work Phone: [facility] Start: 06-25-2024 End: 06-25-2024 Clinisync Result Encounter Jacy Munoz [employer] Work Phone: [facility] Unsolicited Start: 06-25-2024 End: 06-25-2024 Clinisync Result Encounter Jacy Munoz [employer] Work Phone: [facility] Unsolicited Start: 05-25-2024 End: 05-25-2024 Office outpatient visit 25 minutes Jacy Munoz [employer] Work Phone: [facility] Comment on above: Seizures (CMS/HCC) ( Primary Dx); Obstructive sleep apnea; Alkaline phosphatase raised; Insomnia, unspecified type; Memory loss Start: 05-25-2024 End: 05-25-2024 ambulatory JACY SARKARLima Not Available Start: 05-04-2024 End: 05-04-2024 ambulatory CHRISTOPHER B SHANNEN Not Available Start: 07-25-2023 End: 07-25-2023 ambulatory Christopher Jack Facility:[facility] Start: 07-04-2023 End: 07-04-2023 ambulatory Stella Capps Facility:[facility] Start: 07-04-2023 End: 07-04-2023 ambulatory II Christopher Jack Work Phone: [facility] Work Phone: Start: 07-04-2023 End: 07-04-2023 Patient encounter procedure II Christopher Jack Work Phone: [facility] [place] Work Phone: Start: 06-18-2023 End: 06-18-2023 ambulatory Christopher Jack Facility:[facility] Start: 06-18-2023 End: 06-18-2023 ambulatory II Christopher Jack Work Phone: [facility] Work Phone: Start: 06-18-2023 End: 06-18-2023 Patient encounter procedure II Christopher Jack Work Phone: [facility] [place] Work Phone: Start: 08-29-2022 End: 08-29-[address] AARON LANDIS Facility:[facility] Start: 05-24-2022 End: 05-25-[address] STELLA CAPPS Facility:[facility] Start: 10-02-2021 End: 10-03-[address] AARON LANDIS Facility:[facility] Procedures Date Procedure Procedure Detail Performing Clinician Start: 04-19-2025 Hemoglobin glycosylated a1c Christopher Jack MD Work Phone: Start: 10-01-2024 Comprehensive metabo lic panel Christopher Jack MD Work Phone: Start: 10-01-2024 Lipid panel Christopher wilkinson MD Work Phone: Start: 10-01-2024 Urine albumin quantitative Christopher Jack MD Work Phone: Start: 06-25-2024 ALL PHENYTOIN (DILANTIN) Jacy Munoz [employer] Work Phone: Start: 04-06-2015 Colonoscopy Jacy cristina NP Work Phone: Start: 03-28-2015 Colonoscopy Christopher marley MD Work Phone: Plan of Treatment Date Care Activity Detail Author Start: 04-19-2026 Medicare Annual Wellness (AWV) Medicare Annual Wellness (AWV) [facility] Start: 12-19-2025 Glaucoma screening Diabetes: R etinopathy Screening [facility] Start: 10-01-2025 Urine screening for protein Diabetes: Urine Protein Screening [facility] Start: 07-20-2025 Hemoglobin A1c measurement Diabetes: Hemoglobin A1C [facility] Start: 06-07-2025 Influenza vaccination Influenza Vacc ine (#1) [facility] Start: 05-18-2025 End: 05-18-2025 Patient encounter procedure 05/18/2025 12:40 PM EDT Office Visit [facility] [address] [address] Jacy Munoz, RADHA [address] [facility] Start: 05-06-2025 Urine screening for protein Diabetes: Urine Protein Screening [facility] Start: 05-04-2025 Medicare Annual Wellness (AWV) Medicare Annual Wellness (AWV) [facility] Start: 04-06-2025 Screening for malign ant neoplasm of colon [facility] Start: 03-28-2025 Screening for malign ant neoplasm of colon [facility] Start: 12-30-2024 Hemoglobin A1c measurement Diabetes: Hemoglobin A1C [facility] Start: 11-17-2024 End: 11-17-2024 Patient encounter procedure [facility] Comment on above: Arrived Start: 10-14-2024 End: 10-14-2024 Patient encounter procedure 10/14/2024 11:30 AM EST Office Visit [facility] [address] [facility] [address] [place] [id number] Christopher Jack MD [address] [facility] [address] [place], [place] [id number] [facility] Start: 08-04-2024 Hemoglobin A1c measurement Diabetes: Hemoglobin A1C [facility] Start: 06-07-2024 Influenza vaccination Influenza Vacc ine (#1) [facility] Start: 05-25-2024 End: 05-25-2025 Phenytoin level, total Phenytoin level, total Lab Routine Seizures (CMS/HCC) Expected: 05/25/2024 (Approximate), Expires: 05/25/2025 [facility] Work Phone: Comment on above: Expected: 05/25/2024 (Approximate), Expires: 05/25/2025 Start: 1950 Screening for malign ant neoplasm of colon [facility] Immunizations Immunization Date Immunization Notes Care Provider Fa cility 10-09-2024 influenza, high dose seasonal, preservative-free Christopher Jack MD Work Phone: [facility] 10-09-2024 influenza virus vacc ine, unspecified formulation Christopher Jack MD Work Phone: [facility] 10-08-2023 tetanus toxoid, redu lucila diphtheria toxoid, and acellular pertussis vaccine, adsorbed Jacy Munoz NP Work Phone: [facility] 05-14-2023 Influenza, High-dose Seasonal, Quadrivalent, Preservative Free Jacy Gillmor [employer] Work Phone: [facility] 05-14-2023 influenza virus vacc ine, unspecified formulation Jacy Gillmor [employer] Work Phone: [facility] 06-12-2022 Influenza, High-dose Seasonal, Quadrivalent, Preservative Free Jacy Gillmor [employer] Work Phone: [facility] 06-02-2021 Influenza, High-dose Seasonal, Quadrivalent, Preservative Free Jacy Gillmor [employer] Work Phone: [facility] 05-29-2020 influenza, injectabl e, quadrivalent, preservative free Jacy Gillmor [employer] Work Phone: [facility] 06-02-2019 Seasonal trivalent influenza vaccine, adjuvanted, preservative free Jacy Gillmor [employer] Work Phone: [facility] 09-16-2018 zoster vaccine recombinant A ngela Gillmor [employer] Work Phone: [facility] 07-09-2018 pneumococcal polysaccharide vaccine, 23 valent Jacy Gillmor [employer] Work Phone: [facility] 05-20-2018 influenza, injectabl e, quadrivalent, preservative free Jacy Gillmor [employer] Work Phone: [facility] 05-20-2018 zoster vaccine recombinant A ngela Gillmor [employer] Work Phone: [facility] 05-24-2017 pneumococcal conjuga te vaccine, 13 valent Jacy Gillmor [employer] Work Phone: [facility] 05-24-2017 Seasonal trivalent influenza vaccine, adjuvanted, preservative free Jacy Gillmor [employer] Work Phone: [facility] 08-11-2015 influenza, seasonal, injectable, preservative free Jacy Gillmor [employer] Work Phone: [facility] 07-21-2015 zoster vaccine, live Jacy Gillmor [employer] Work Phone: [facility] 07-09-2014 influenza, injectabl e, quadrivalent, preservative free Jacy Gillmor [employer] Work Phone: [facility] 03-29-2014 pneumococcal vaccine , unspecified formulation Christopher Jack MD Work Phone: [facility] 01-18-2014 diphtheria, tetanus toxoids and acellular pertussis vaccine, unspecified formulation Christopher Jack MD Work Phone: [facility] 08-13-2013 influenza, seasonal, injectable Jacy Gilljustin [employer] Work Phone: [facility] Healthcare Payers Date Payer Category Payer Self-pay [id number] 2023 Unknown [id number] 2022 Private Health Insurance [id number] 2022 Unknown [employer] [facility] [employer] [facility] [id number] 2022-Present [address] [place] [address] [id number] 2022 Unknown [id number] 2016 Medicare [id number] 1959 Medicare [id number] 1959 Unknown [id number] 1950 Unknown [id number] [id number] 1951 Unknown [id number]. 2.593 1951 Unknown [id number]. [id number] 1951 Unknown [id number] [id number]. 2.1259 1951 Unknown [id number] [id number]. 2.1259 1951 Unknown [id number]. 2.1259 1951 Unknown [id number]. 2.1259 1951 Unknown [id number] 2.1259 Unknown Regular Insurance [id number] Unknown [id number] 2.531 Unknown [id number]. 2.531 Unknown [id number] 2.531 Social History Date Type Detail Facility Tobacco smoking stat [facility] Unknown if ever smoked [facility] Work Phone: Start: 1950 Sex Assigned At Male F [facility] Start: 05-04-2024 Tobacco smoking stat [facility] Ex-smoker [facility] Start: 10-07-1973 History of tobacco use Current smoke r [facility] Start: 10-07-1973 History of tobacco use Cigarette Smo ker [facility] Start: 05-04-2024 End: 04-19-2025 Cigarettes smoked current (pack per day) - Reported 1.5 [facility] Start: 05-04-2024 Tobacco use and exposure Smokeless tobacco non-user [facility] Start: 05-25-2024 End: 04-19-2025 Alcoholic beverage intake Lifetime non-drinker (finding) [facility] Start: 05-25-2024 End: 04-19-2025 Tobacco use panel [facility] Start: 1950 Sex assigned at Not on file [facility] Functional Status Date Assessment Result Facility 04-19-2025 Patient Health Quest ionnaire 2 item (PHQ-2) [Reported] [facility] Clinical Notes 05-25-2024 to 04-19-2025 Christopher Jack MD - 04/19/2025 2:00 PM Belem Munoz NP - 11/17/2024 2:20 PM Ольга Jack MD - 10/14/2024 11:30 AM ESTTelephone Encounter - Eleni Covington - 07/02/2024 1:37 PM EDT Note Date & Type Note Facility 04-19-2025 History of Presen t illness Narrative Images from the original note were not included. Subjective : Chief Complaint: Angel Cuevas is an 75 y.o. male here for an annual wellness visit. I have reviewed and reconciled the history and medication list with the patient today. Current Outpatient Medications Medication Sig Dispense Refill atorvastatin (Lipitor) 10 MG tablet Take 1 tablet (10 mg) by mouth Daily 100 tablet 3 doxepin (SINEquan) 10 MG capsule TAKE 1 TO 2 CAPSULES BY MOUTH AT BEDTIME 60 capsule 1 metFORMIN (Glucophage) 500 MG tablet Take 1 tablet (500 mg) by mouth in the morning and 1 tablet (500 mg) in the evening. Take with meals. 180 tablet 3 Phenytoin Infatabs 50 MG chewable tablet CHEW AND SWALLOW 3 TABLETS BY MOUTH TWICE A DAY 540 tablet 0 No current facility-administered medications for this visit. Review of Systems List of current healthcare providers: Patient Care Team: Christopher Jack MD as PCP - General (Internal Medicine) Stella Capps DO as Referring Physician (Neurology) Medicare Annual Visit Over the past 2 weeks, how often have you been bothered by any of the following problems? Little interest or pleasure in doing things: Not at all Feeling down, depressed, or hopeless: Not at all Patient Health Questionnaire-2 Score: 0 Miranda Fall Risk History of Falling, Immediate or Within 3 Months: No Secondary Diagnosis: No Ambulatory Aid: Walks without aid/bedrest/nurse assist Health Risk Assessment Form Do you need help eating, bathing, using the toilet, dressing, or getting around your home?: No Can you prepare your own meals?: Yes Can you do your own housework without help?: Yes Can you shop for groceries or clothes without help?: Yes Do you exercise for about 20 minutes 3 or more days a week?: Yes How confident are you that you can control and manage most of your health problems?: Very confident Can you mange your money, credit cards and accounts, pay bills and taxes?: Yes Cognitive Screening Three Word Registration: Apple, Watch, Roberta Clock Drawing: Normal Clock - 2 Three Word Recall: All 3 words correct - 3 Total Score (0-5 Points): 5 Pain Assessment Pain Score: 3 Advance Care Planning Do you have a living will?: No Do you have a medical power of interlocker?: No Objective : BP 124/66 Pulse 64 Ht 5' 7 Wt 129 lb SpO2 95% BMI 20.20 kg/m No results found. Physical Exam Constitutional: General: He is not in acute distress. Appearance: He is normal weight. He is not ill-appearing. HENT: Head: Normocephalic. Cardiovascular: Rate and Rhythm: Normal rate and regular rhythm. Heart sounds: Normal heart sounds. No murmur heard. Pulmonary: Effort: Pulmonary effort is normal. Breath sounds: Normal breath sounds. Musculoskeletal: General: No swelling. Right lower leg: No edema. Left lower leg: No edema. Neurological: Mental Status: He is alert. Psychiatric: Mood and Affect: Mood normal. Thought Content: Thought content normal. Judgment: Judgment normal. Office Visit on 04/19/2025 Component Date Value Ref Range Status Hemoglobin A1C 04/19/2025 5.7 Final Assessment/Plan : The following health maintenance schedule was reviewed with the patient and provided in printed form in the after visit summary: Health Maintenance Topic Date Due Colorectal Cancer Screening 03/28/2025 Medicare Annual Wellness (AWV) 05/04/2025 Influenza Vaccine (1) 06/07/2025 Diabetes: Hemoglobin A1C 07/20/2025 Diabetes: Urine Protein Screening 10/01/2025 Diabetes: Retinopathy Screening 12/19/2025 Pneumococcal Vaccine: 65+ Years Completed Advance Care Planning Assessment/Plan Diagnoses and all orders for this visit: Routine general medical examination at health care facility ACP (advance care planning) Encounter for screening for malignant neoplasm of colon History of smoking 25-50 pack years Screening for AAA (abdominal aortic aneurysm) Type 2 diabetes mellitus with other specified complication, without long-term current use of insulin (HCC) - POCT Glycated hemoglobin, total - FSBS log shows good control, most recent A1C is at or near goal. Continue current treatment plan as previously outlined without changes. Seizures (HCC) Mild cognitive impairment Obstructive sleep apnea Orders Placed This Encounter Procedures POCT Glycated hemoglobin, total Electronically signed by Christopher Jack MD on April 19, 2025 documented in this encounter [facility] 11-17-2024 History of Presen t illness Narrative Images from the original note were not included. Chief Complaint Patient presents with Seizures Headache Memory Loss Subjective Angel states he is doing well since last visit. He denies any seizure like activity. He denies any evidence of nocturnal seizures. He denies any memory decline. He is wearing his PAP machine nightly. He does not need any new supplies or refills at this time. Past Medical History: Diagnosis Date Diabetes mellitus ([facility]) 09/23/2023 Hyperlipidemia ([facility]) Insomnia Seizures ([facility]) 09/23/2023 Sleep apnea No past surgical history on file. Family History Problem Relation Name Age of Onset Diabetes Father Cancer Father Stroke Other Seizures Nephew Social History Tobacco Use Smoking status: Former Average packs/day: 1.5 packs/day for 15.0 years (22.5 ttl pk-yrs) Types: Cigarettes Start date: 1972 Smokeless tobacco: Never Substance Use Topics Alcohol use: Never Allergies: Patient has no known allergies. General: No fever or chills HEENT: No nasal congestion or runny nose Pulmonary: No shortness of breath or cough Cardiovascular: No chest pain or palpitations GI: No nausea or vomiting : No dysuria or hematuria Musculoskeletal: No new aches or pains or muscle weakness Infectious: no recurrent fevers or infections Dermatologic: No rashes or skin lesions Neurologic: No new headaches or dizziness Vitals: 11/17/24 1425 BP: 108/65 Pulse: 72 Body mass index is 20.36 kg/m . weight: 130 lb Neurologic exam: General: Normal body habitus, cooperative, pleasant Mental status: Awake, alert to person, place and time. Recent and remote memory are intact. Attention and concentration are normal. Fund of knowledge is appropriate for level of education. HEENT: NC/AT Cranial nerves: CN II: Visual lira full to confrontation. No loss of vision CN III, IV, : pupils equal round and reactive to light. Extraocular movements intact. No ptosis present. CN V: Facial sensation is normal. CN VII: Full and symmetric facial movement. CN VIII: Hearing is normal CN IX and X: Palate elevates symmetrically. CN XI: Shoulder shrug is normal bilaterally. CN XII: Tongue is midline without atrophy or fasciculation. Speech: Clear and fluent no aphasia or dysarthria Pronator drift: Negative bilateral upper extremity Coordination: Intact, no signs of dysmetria Good finger to nose and rapid alternating movements Sensory: Sensation is intact to light, temperature and vibratory touch throughout four extremities. Motor: LUE 5/5 RUE 5/5 LLE 5/5 RLE 5/5 Tone: Physiologic, no tremor, bradykinesia or rigidity DTR: Bilateral Biceps 2/4 Bilateral BR 2/4 Bilateral Patellar 2/4 No spasticity Gait: Normal to casual gait Romberg's Negative Assessment/Plan Diagnoses and all orders for this visit: Seizures (CMS/HCC) Obstructive sleep apnea Insomnia, unspecified type Memory loss Alkaline phosphatase raised 74-year-old male with history of seizure disorder that continues to be controlled on the Dilantin. He denies any side effect to the Dilantin. He continues to have elevated alk phos. I was able to obtain his most recent labs found from 09/2024. CMP had high glucose 121 other slight nonconcering variations except for his Alk Phos is 194. This is improved from a high of 222 at one time, although a year ago it was 153. CBC with diff slight variations. We will update this along with dilantin level at next visit. . 06/18/2023 he had a low Dilantin at 3.3, alk phos down to 153. He notified between visits and increased to 3 tabs BID. Lab recheck was up to 7.7 on 07/04/2023 and then 9.8 on 06/2024. Alk phos back up to 201, K+ 3.3, CBC slight variations, WBC 3.9, otherwise unremarkable. We may need to change dilantin to a different med. . His insomnia is now controlled with the Doxepin. He does only take 1 cap. Patient machine changed to an auto CPAP at 8-15 cm of water as he was unable to tolerate the 14 cm water pressure. He is benefitting as he is sleeping better. He denies any issues with mask or machine. Inspire has been discussed at prior visit and he declined moving forward with this. He is again complaint on download ending 11/11/2024 as he is wearing the mask > 4 hours 100% of the days, with nightly average usage 7 hours, 7 minutes, residual AHI 1.6, no significant leak noted. . He mentions his memory has not improved although has again been stable since last visit. MMSE 28/30. We will continue to monitor memory for now. No unsafe behaviors. . Biotene mouthwash for dry mouth and zyrtec for nasal congestion is helpful He is off the fluticasone and is doing Zicam instead. . Review and summary of old records: . . . Plan When he is here at next visit he will need a slip to have LFTs rechecked due to elevations and update dilantin level monitor memory, possible workup pending course continue the dilantin 50mg 3 tabs BID reviewed labs after visit, alk phos back up, may need to change dilantin, labs over a year old reviewed complaince download complaince download at next visit cont the doxepin 10 mg 1 bedtime cont the zyrtec Can use the Biotene mouthwash lozenge or spray for lubrication in his mouth The patient was councelled on the risks of stroke, ID, and sudden with KOSTA, along with the need for compliance with CPAP/BiPAP treatment. Proper diet and exercise Call if any new issues This was discussed with the patient, all questions were answered and they agreed with the treatment plan. The patient is to call with any worsening of the condition or new symptoms. Return to clinic: 6 months documented in this encounter [facility] 10-14-2024 History of Presen t illness Narrative HPI Results Additional comments: Lab results 04/2024 Last edited by Jennifer Gonzalez LPN on 10/14/2024 11:44 AM. Subjective Patient ID: Angel Cuevas is a 74 y.o. male who presents for Diabetes and Results (Lab results 04/2024). Diabetes Mellitus Patient presents for follow up of diabetes. Current symptoms include: none. Patient denies foot ulcerations, hypoglycemia , nausea, paresthesia of the feet, polydipsia, polyuria, and vomiting. Evaluation to date has included: fasting blood sugar, fasting lipid panel, hemoglobin A1C, and microalbuminuria. Home sugars: patient does not check sugars. Pt had labs completed through [facility] sep 2024 and brought all results for his record Diabetes Pertinent negatives for diabetes include no chest pain and no fatigue. Current Outpatient Medications on File Prior to Visit Medication Sig Dispense Refill atorvastatin (Lipitor) 10 MG tablet take 1 tablet by mouth once daily 100 tablet 3 doxepin (SINEquan) 10 MG capsule TAKE 1 TO 2 CAPSULE BY MOUTH AT BEDTIME 60 capsule 1 metFORMIN (Glucophage) 500 MG tablet Take 1 tablet (500 mg) by mouth in the morning and 1 tablet (500 mg) in the evening. Take with meals. 180 tablet 3 Phenytoin Infatabs 50 MG chewable tablet CHEW AND SWALLOW 3 TABLETS BY MOUTH TWICE A DAY 540 tablet 0 [DISCONTINUED] phenytoin (Dilantin) 50 MG chewable tablet Chew 3 tablets (150 mg) in the morning and 3 tablets (150 mg) before bedtime. 540 tablet 0 No current facility-administered medications on file prior to visit. I have reviewed and reconciled the history and medication list with the patient today. No Known Allergies Social History Tobacco Use Smoking status: Former Average packs/day: 1.5 packs/day for 15.0 years (22.5 ttl pk-yrs) Types: Cigarettes Start date: 1972 Smokeless tobacco: Never Substance Use Topics Alcohol use: Never Family History Problem Relation Name Age of Onset Diabetes Father Cancer Father Stroke Other Seizures Nephew Past Medical History: Diagnosis Date Diabetes mellitus ([facility]) 09/23/2023 Hyperlipidemia ([facility]) Insomnia Seizures ([facility]) 09/23/2023 Sleep apnea History reviewed. No pertinent surgical history. Visit Vitals BP 118/68 Pulse 64 Ht 5' 7 Wt 134 lb SpO2 96% BMI 20.99 kg/m Smoking Status Former BSA 1.7 m Review of Systems Constitutional: Negative for fatigue. Cardiovascular: Negative for chest pain. Objective Physical Exam Constitutional: General: He is not in acute distress. Appearance: He is normal weight. He is not ill-appearing. HENT: Head: Normocephalic. Cardiovascular: Rate and Rhythm: Normal rate and regular rhythm. Heart sounds: Normal heart sounds. No murmur heard. Pulmonary: Effort: Pulmonary effort is normal. Breath sounds: Normal breath sounds. Musculoskeletal: General: No swelling. Right lower leg: No edema. Left lower leg: No edema. Neurological: Mental Status: He is alert. Psychiatric: Mood and Affect: Mood normal. Thought Content: Thought content normal. Judgment: Judgment normal. Assessment/Plan Diagnoses and all orders for this visit: Type 2 diabetes mellitus with other specified complication, without long-term current use of insulin (CMS/HCC) - FSBS log shows good control, most recent A1C is at or near goal. Continue current treatment plan as previously outlined without changes. Obstructive sleep apnea Seizures ([facility]) Alkaline phosphatase raised Follow up in about 6 months (around 04/13/2025) for Wellness. documented in this encounter [facility] 07-02-2024 Telephone encount er Note LET PATIENT KNOW AND SCHEDULED HIM BASED ON LAST OV NOTE [facility] 07-02-2024 Miscellaneous Notes Formattin g of this note might be different from the original. LET PATIENT KNOW AND SCHEDULED HIM BASED ON LAST OV NOTE Patient came in asking about a paper that he was given recently. He said it had an order on it for an injection he said something about how it needed to be done regarding his age. He said he took it to the pharmacy - they took the paper and said it was going to cost him 300 dollars and never gave him the paper back. I didn't see any meds ordered or a paper scanned in about this and the patient was very confusing when he was talking about this he couldn't give me the information I needed about what med this was and what it was for. He wants a new paper to bring to a different pharmacy that can hopefully help him. documented in this encounter [facility] 06-30-2024 Telephone encount er Note Patient came in asking about a paper that he was given recently. He said it had an order on it for an injection he said something about how it needed to be done regarding his age. He said he took it to the pharmacy - they took the paper and said it was going to cost him 300 dollars and never gave him the paper back. I didn't see any meds ordered or a paper scanned in about this and the patient was very confusing when he was talking about this he couldn't give me the information I needed about what med this was and what it was for. He wants a new paper to bring to a different pharmacy that can hopefully help him. [facility] 05-25-2024 History of Presen t illness Narrative Images from the original note were not included. No chief complaint on file. Subjective Angel states he's has not had any seizure like activities. He states he's doing well on his medication. No evidence of nocturnal seizures. Angel states his memory has not worsened. He states he is still using his PAP machine. No other concerns he wants to bring up to the doctor. Past Medical History: Diagnosis Date Diabetes mellitus ([facility]) 09/23/2023 Hyperlipidemia ([facility]) Insomnia Seizures ([facility]) 09/23/2023 Sleep apnea History reviewed. No pertinent surgical history. Family History Problem Relation Name Age of Onset Diabetes Father Cancer Father Stroke Other Seizures Nephew Social History Tobacco Use Smoking status: Former Average packs/day: 1.5 packs/day for 15.0 years (22.5 ttl pk-yrs) Types: Cigarettes Start date: 1972 Smokeless tobacco: Never Substance Use Topics Alcohol use: Never Allergies: Patient has no known allergies. General: No fever or chills HEENT: No nasal congestion or runny nose Pulmonary: No shortness of breath or cough Cardiovascular: No chest pain or palpitations GI: No nausea or vomiting : No dysuria or hematuria Musculoskeletal: No new aches or pains or muscle weakness Infectious: no recurrent fevers or infections Dermatologic: No rashes or skin lesions Neurologic: No new headaches or dizziness Vitals: 05/25/24 1417 BP: 123/81 Pulse: 80 SpO2: 95% Body mass index is 21.33 kg/m . weight: 136 lb 3.2 oz Neurologic exam: General: Normal body habitus, cooperative, pleasant Mental status: Awake, alert to person, place and time. Recent and remote memory are intact. Attention and concentration are normal. Fund of knowledge is appropriate for level of education. HEENT: NC/AT Cranial nerves: CN II: Visual lira full to confrontation. No loss of vision CN III, IV, : pupils equal round and reactive to light. Extraocular movements intact. No ptosis present. CN V: Facial sensation is normal. CN VII: Full and symmetric facial movement. CN VIII: Hearing is normal CN IX and X: Palate elevates symmetrically. CN XI: Shoulder shrug is normal bilaterally. CN XII: Tongue is midline without atrophy or fasciculation. Speech: Clear and fluent no aphasia or dysarthria Pronator drift: Negative bilateral upper extremity Coordination: Intact, no signs of dysmetria Good finger to nose and rapid alternating movements Sensory: Sensation is intact to light, temperature and vibratory touch throughout four extremities. Motor: LUE 5/5 RUE 5/5 LLE 5/5 RLE 5/5 Tone: Physiologic, no tremor, bradykinesia or rigidity DTR: Bilateral Biceps 2/4 Bilateral BR 2/4 Bilateral Patellar 2/4 No spasticity Gait: Normal to casual gait Romberg's Negative Assessment/Plan Diagnoses and all orders for this visit: Seizures ([facility]) - Phenytoin level, total; Future Obstructive sleep apnea Alkaline phosphatase raised Insomnia, unspecified type Memory loss 74-year-old male with history of seizure disorder that is controlled on the Dilantin. Labs have shown an elevated alkaline phosphatase as high as 222. 06/18/2023 he had a low Dilantin at 3.3, alk phos down to 153. He notified between visits and increased to 3 tabs BID. Lab recheck was up to 7.7 on 07/04/2023. We did find updated labs from PCP and reviewed, no dilantin level and we order now. Alk phos is back up to 201, K+ 3.3, CBC slight variations, WBC 3.9, otherwise unremarkable. We may need to change dilantin to a different med. . His insomnia is now controlled with the Doxepin without the dry mouth. He does only take 1 cap. Patient did have his machine changed to an auto CPAP at 8-15 cm of water . He was unable to tolerate the 14 cm water pressure. He is benefitting as he is sleeping better. He denies any issues with mask or machine. Inspire has been discussed at prior visit and he declined moving forward with this. He is complaint on download ending 05/21/2024 as he is wearing the mask > 4 hours 97% of the days, with nightly average usage 7 hours, 28 minutes, residual AHI 4.2, no significant leak noted. . He mentions his memory has not improved although has been stable since last visit. MMSE . We will monitor memory for now. No unsafe behaviors. . Biotene mouthwash for dry mouth and some zyrtec for nasal congestion and it is controlled He is off the fluticasone and is doing Zicam instead. . Review and summary of old records: . . . plan MMSE monitor memory, possible workup pending course continue the dilantin 50mg 3 tabs BID reviewed labs after visit, alk phos back up, may need to change dilantin _update dilantin level reviewed complaince download complaince download at next visit cont the doxepin 10 mg 1 bedtime cont the zyrtec Can use the Biotene mouthwash lozenge or spray for lubrication in his mouth The patient was councelled on the risks of stroke, ID, and sudden with KOSTA, along with the need for compliance with CPAP/BiPAP treatment. Proper diet and exercise Call if any new issues This was discussed with the patient, all questions were answered and they agreed with the treatment plan. The patient is to call with any worsening of the condition or new symptoms. Return to clinic: 6 months documented in this encounter [facility] Evaluation note No assessment inform ation available [facility] Work Phone: Evaluation note Diagnosis Seizures (CMS/HCC)- Primary Other convulsions Obstructive sleep apnea Obstructive sleep apnea (adult) (pediatric) Alkaline phosphatase raised Other nonspecific abnormal serum enzyme levels Insomnia, unspecified type Memory loss documented in this encounter [facility] note* Diagnosis Type 2 diabetes mellitus with other specified complication, without long-term current use of insulin (CMS/HCC)- Primary Obstructive sleep apnea Obstructive sleep apnea (adult) (pediatric) Seizures (CMS/HCC) Other convulsions Alkaline phosphatase raised Other nonspecific abnormal serum enzyme levels documented in this encounter [facility]* Diagnosis Seizures (CMS/HCC)- Primary Other convulsions Obstructive sleep apnea Obstructive sleep apnea (adult) (pediatric) Insomnia, unspecified type Memory loss Alkaline phosphatase raised Other nonspecific abnormal serum enzyme levels documented in this encounter [facility] HealthcareEvaluation note* Diagnosis Routine general medical examination at health care facility- Primary Routine general medical examination at a health care facility ACP (advance care planning) Other specified counseling Encounter for screening for malignant neoplasm of colon History of smoking 25-50 pack years Screening for AAA (abdominal aortic aneurysm) Screening for other and unspecified cardiovascular conditions Type 2 diabetes mellitus with other specified complication, without long-term current use of insulin (HCC) Seizures (HCC) Other convulsions Mild cognitive impairment Mild cognitive impairment, so stated Obstructive sleep apnea Obstructive sleep apnea (adult) (pediatric) documented in this encounter [facility] Summary Purpose Family History No Family History Records FoundNo Family History Records FoundNo Family History Records Found Advance Directives No Advanced Directives Records Found Advance Directive Response Recorded Date/ Time Advance Directives No December 24 12:57pm Chief Complaint and Reason for Visit Chief Complaint R45.9 Chief Complaint R45.9 R56.9 Additional Source Comments (unrecognized sect ion and content) No Status Records FoundNo Status Records FoundNo Status Records Found INFORMATION SOURCE (unrecogn ized section and content) DATE CREATED AUTHOR 09/03/2022 [facility] DATE CREATED AUTHOR AUTHOR'S ORGANIZ ATION 08/03/2023 [facility] DATE CREATED AUTHOR AUTHOR'S ORGANIZ ATION 04/23/2025 [facility] [employer] Care Teams (unrecognized sec tion and content) Team Status: Active Member Role Status Dates Christopher Jack II MD Primary Care Provider Active Team Status: Inactive Member Role Status Dates Christopher Jack II MD Primary Care Provider Active Stella Capps DO Attending Provider Active Tassel Clipper Relationship Specialty Start Date End Date Christopher Jack MD [address] [place] [address] PCP - General Internal Medicine 12/03/23 Stella Capps DO [address] [place] [address] Referring Physician Neurology 12/03/23 Tassel Clipper Relationship Specialty Start Date End Date Christopher Jack MD [address] [place] [address] PCP - General Internal Medicine 12/03/23 Stella Capps DO [address] [place] [address] Referring Physician Neurology 12/03/23 Tassel Clipper Relationship Specialty Start Date End Date Christopher Jack MD [address] [place] [address] PCP - General Internal Medicine 12/03/23 Stella Capps DO [address] [place] [address] Referring Physician Neurology 12/03/23 Tassel Clipper Relationship Specialty Start Date End Date Christopher Jack MD [address] [place] [address] PCP - General Internal Medicine 12/03/23 Stlela Capps DO [address] [place] [address] Referring Physician Neurology 12/03/23 Tassel Clipper Relationship Specialty Start Date End Date Christopher Jack MD [address] [place] [address] PCP - General Internal Medicine 12/03/23 Stella Capps DO [address] [place] [address] Referring Physician Neurology 12/03/23 Tassel Clipper Relationship Specialty Start Date End Date Christopher Jack MD [address] [facility] [address] [place] [address] PCP - General Internal Medicine 12/03/23 Stella Capps DO [address] [place] [address] Referring Physician Neurology 12/03/23 Tassel Clipper Relationship Specialty Start Date End Date Christopher Jack MD [address] [facility] [address] [place] [address] PCP - General Internal Medicine 12/03/23 Setlla Capps DO [address] [place] [address] Referring Physician Neurology 12/03/23 Goals (unrecognized section and content) Goals may be documented in a n alternate sectionGoals may be documented in an alternate section Reason for Visit (unrecogniz ed section and content) Reason Comments Diabetes Results Lab results 04/2024 Reason Comments Seizures Headache Memory Loss Reason Comments Medicare Annual Wellness Visit Subsequen t FOR RECORDS PERTAINING TO PATIENTS WHO ARE OR HAVE BEEN ENROLLED IN A CHEMICAL DEPENDENCY/SUBSTANCEABUSE PROGRAM, SOME INFORMATION MAY BE OMITTED. This clinical summary was aggregated from multiple sources. Caution should be exercised in using it in the provision of clinical care. This summary normalizes information from multiple sources, and as a consequence, information in this document may materially change the coding, format and clinical context of patient data. In addition, data may be omitted in some cases. CLINICAL DECISIONS SHOULD BE BASED ON THE PRIMARY CLINICAL RECORDS. [employer] provides no warranty or guarantee of the accuracy or [phone] information in [phone] [id number]
== END 2025-04-26 09:54 | disposition home or self-care (01) ==
LOC: US 09:55
PROVIDERS: PCP Internal Medicine; Visit Provider Internal Medicine
DX: Z87.891 Personal history of nicotine dependence (principal); Z13.6 Encounter for screening for cardiovascular disorders
CPT/HCPCS: 76706